=== PATIENT | male | born 1965 | race Two or more races ===

== ENCOUNTER 2023-05-19 12:21 | Emergency (ER) | payer OTHER ==
[2023-05-19] MEDS ORDERED: Dicyclomine 10 MG CAP ONE (13:04)
[2023-05-19] MEDS ORDERED: Ibuprofen 800 MG TAB ONE (13:04)
== END 2023-05-19 13:32 | disposition home or self-care (01) ==
LOC: MADERS 12:21
DX: J10.1 Influenza due to other identified influenza virus with other respiratory manifestations (principal)
CPT/HCPCS: 71046; 87635; 87804